=== PATIENT | female | born 1995 | race Hispanic/Latino ===

== ENCOUNTER 2020-12-03 12:59 | Inpatient (IN) | payer OTHER ==
[2020-12-03] MEDS ORDERED: OXYTOCIN DRIP 30,000 MILLIUNITS/500 ML BAG IV ONE (13:01)
[2020-12-03] MEDS ORDERED: LACTATED RINGERS 1,000 ML ONE ×2 (13:08→13:57)
[2020-12-03] MEDS ORDERED: MAGNESIUM SULFATE 4 GM/100 ML BAG IV ONE ×3 (13:09→14:04)
[2020-12-03] MEDS ORDERED: MAGNESIUM SULFATE 40GM/1000ML 40 GM/1,000 ML BAG IV ONE (13:09)
[2020-12-03] MEDS: hydrALAZINE 20 MG/1 ML INJ ONE (13:35)
--- NOTE | 2020-12-03 13:48 | Procedure Note ---
OB Delivery Note - Delivery Date of Delivery: 12/03/20 Surgeon: PONCHO OSBORNE Estimated blood loss: 500cc - Vaginal Delivery presentation: vertex Delivery position: OA Intrapartum events: no care, bleeding site-undetermine Delivery induction: none Delivery monitor: external FHT, external uterine Route of delivery: Delivery placenta: spontaneous Delivery cord: 3 umbilical vessels Episiotomy: none Delivery laceration: none Delivery comments: Pt presented to L&D completely dilated and bleeding profusely with clots. Pt has minimal to no care. She has not seen a doctor since 20 weeks. Infant born precipitously with no heart beat and no respiratory effort initially. Code [facility] called and NICU present immediately. Placenta delivered spontaneously and intact. No lacerations. - A at 1 minute: 0 at 5 minutes: 2 (5 at 10 minute/ 7 at 15 minutes) Infant Gender: Male
--- NOTE | 2020-12-03 13:56 | History and Physical Report ---
History of Present Illness Date of examination: 12/03/20 Date of admission: 12/03/20 12:59 Chief complaint: I'm in labor History of present illness: Patient is a 25-year-old 5 para 2-0-2-2 who presents at approximately 35.3 weeks gestation with reported EDC of January 04, 2021. The patient has had essentially no care with her last office visit being 20 weeks. She has been seen in the ED at various times but has not seen a doctor consistently. She has a history of preeclampsia with her previous pregnancies, however she was not being treated for this condition. She presented to labor and delivery today with complaint of abdominal pain and profuse vaginal bleeding with clots. Past History Past Medical History: hypertension Past Surgical History: no surgical history Family/Genetic History: none Social history: single - Obstetrical History Expected Date of Delivery: 01/04/21 Actual Gestation: 35 Week(s) 3 Day(s) : 5 Para: 2 Spontaneous Abortions: 2 Number of Living Children: 2 Review of Systems All systems: negative Gastrointestinal: abdominal pain Genitourinary: vaginal bleeding, contractions - Vital Signs Vital signs: Vital Signs Pulse BP Pulse Ox 27 L 206/132 92 12/03/20 13:05 12/03/20 13:05 12/03/20 13:05 Temp Pulse Resp BP Pulse Ox 117 H 155/107 99 12/03/20 13:49 12/03/20 13:44 12/03/20 13:49 - Physical Exam Breasts: Cardiovascular: Regular rate, Normal S1, Normal S2 Lungs: Positive: Clear to auscultation, Normal air movement Abdomen: Positive: normal appearance, soft, normal bowel sounds. Negative: distention, tenderness Genitourinary (Female): Positive: normal external genitalia, normal perenium Vulva: both: normal Vagina: Positive: normal moisture. Negative: discharge Cervix: Negative: lesion, discharge Uterus: Positive: normal size, normal contour Adnexa: both: normal Anus/Rectum: Positive: normal perianal skin, heme negative. Negative: rectal mass, hemorrhoids Extremities: Deep Tendon Reflex Grade: Normal +2 - Obstetrical Cervical Dilatation: 10 Cervical Effacement Percentage: 100 Results All other labs normal. Assessment and Plan IUP at 35 and 3 weeks with no care in active labor and suspected abruption of placenta. Infant delivered precipitously and was taken to the NICU. Patient had postdelivery blood pressures in the 170s over 120s. We will begin magnesium therapy as well as hydralazine to lower blood pressure urgently. We will continue with PIH work-up.
[2020-12-03] MEDS ORDERED: LACTATED RINGERS 1,000 ML IV ONE (14:00)
[2020-12-03] MEDS ORDERED: WITCH HAZEL/ GLYCERIN PAD TP PRN (14:01)
[2020-12-03] MEDS ORDERED: PROMETHAZINE 25 MG RECT SUPP PR PRN (14:01)
[2020-12-03] MEDS ORDERED: LANOLIN/ZINC/DIMETHICONE (LANSINOH) 7 GM TP PRN (14:01)
[2020-12-03] MEDS ORDERED: diphenhydrAMINE 25 MG CAP PO PRN (14:01)
[2020-12-03] MEDS ORDERED: ONDANSETRON 4 MG/2 ML INJ IV PRN (14:01)
[2020-12-03] MEDS ORDERED: HYDROcodone/ACETAMINOPHEN 5-325 MG TAB PO PRN (14:01)
[2020-12-03] MEDS ORDERED: MAGNESIUM HYDROXIDE (MOM) ORAL LIQD UDC PO PRN (14:01)
[2020-12-03] MEDS ORDERED: PROMETHAZINE 25 MG TAB PO PRN (14:01)
[2020-12-03] MEDS ORDERED: hydrALAZINE 20 MG/1 ML INJ IV PRN (15:00)
[2020-12-03] MEDS ORDERED: MAGNESIUM SULFATE 40GM/1000ML 40 GM/1,000 ML BAG IV SCH (15:00)
[2020-12-03] MEDS ORDERED: OXYTOCIN DRIP 30 UNITS/500 ML BAG IV SCH (15:00)
[2020-12-03] MEDS: NIFEdipine XL 60 MG TAB PO SCH (16:42)
[2020-12-03] MEDS: IBUPROFEN 600 MG TAB PO SCH (17:20)
[2020-12-03 17:23] LABS: Mean Corpuscular HGB Conc 28 % (30-34); Platelet Count 161 K/mm3 (140-440); Red Blood Count 4.46 M/mm3 (3.65-5.03); Red Cell Distribution Width 18.3 % (13.2-15.2)
[2020-12-03 17:24] LABS: Hematocrit 30.5 % (30.3-42.9); Hemoglobin 8.7 gm/dl (10.1-14.3); Mean Corpuscular Volume 69 fl (79-97)
[2020-12-03 17:42] LABS: Bacteria,Urine 1+ /HPF (Negative); Bilirubin,Urine NEG (Negative); Blood,Urine NEG (Negative); Color,Urine Yellow (Yellow); Mucus,Urine FEW /HPF; Urobilinogen,Urine < 2.0 mg/dL (<2.0)
[2020-12-03 17:46] LABS: Amphetamine Screen,Urine PRESUMPTIVE POSITIVE; Benzodiazepines Screen,Urine PRESUMPTIVE NEGATIVE; Cannabinoid Screen,Urine PRESUMPTIVE NEGATIVE; Cocaine Screen,Urine PRESUMPTIVE NEGATIVE; Methadone Screen,Urine PRESUMPTIVE NEGATIVE; Opiate Screen,Urine PRESUMPTIVE POSITIVE
[2020-12-03 17:47] LABS: Alanine Aminotransferase 35 units/L (7-56)
[2020-12-03 17:59] LABS: Hepatitis C Virus Antibody Non-Reactive (NonReactive)
[2020-12-03 18:25] LABS: Uric Acid 6.5 mg/dL (3.5-7.6)
[2020-12-03 22:30] LABS: Basophils % (Auto) 0.2 % (0.0-1.8); Eosinophils % (Auto) 0.2 % (0.0-4.3); Hematocrit 22.7 % (30.3-42.9); Hemoglobin 6.8 gm/dl (10.1-14.3); Lymphocytes # (Auto) 1.8 K/mm3 (1.2-5.4); Lymphocytes % (Auto) 9.1 % (13.4-35.0); Mean Corpuscular HGB Conc 30 % (30-34); Monocytes # (Auto) 0.8 K/mm3 (0.0-0.8); Monocytes % (Auto) 4.2 % (0.0-7.3); Platelet Count 114 K/mm3 (140-440); Red Blood Count 3.49 M/mm3 (3.65-5.03); Red Cell Distribution Width 18.2 % (13.2-15.2)
[2020-12-03 22:31] LABS: Mean Corpuscular Volume 65 fl (79-97)
[2020-12-03] MEDS: DOCUSATE SODIUM 100 MG CAP PO SCH (22:36)
[2020-12-04] MEDS ORDERED: LACTATED RINGERS 1,000 ML IV SCH (03:00)
[2020-12-04 06:08] LABS: Hemoglobin 7.3 gm/dl (10.1-14.3)
[2020-12-04] MEDS ORDERED: PRENATAL VIT27-FE FUMARATE-FOLIC ACID VIT TAB PO SCH (10:00)
[2020-12-04] MEDS: IBUPROFEN 600 MG TAB PO SCH ×2 (14:45→20:16)
[2020-12-04] MEDS: NIFEdipine XL 60 MG TAB PO SCH (14:46)
--- NOTE | 2020-12-04 22:06 | Progress Note ---
Assessment and Plan PPD 1 s/p precipitous delivery highly suspicious or abruption with no care and peripartum hypertension. NOw stable and doing well. Pt has been off mag now for 4 hours. If blood pressure continues to be stable, will proceed with discharge in the am. Subjective - Subjective Date of service: 12/04/20 Interval history: Patient is a 25-year-old 5 para 2-0-2-2 who presents at approximately 35.3 weeks gestation with reported EDC of January 04, 2021, now post- day one. Infant was transferred to [place] last evening. Pt has been on magnesium now for 8 hours. Her blood pressure is under good control on Procardia. Of note patient had positive tox screen for amphetamines and opiates. Patient reports: appetite normal, voiding normally, pain well controlled, ambulating normally [facility]: transported Objective - Vital Signs Latest vital signs: Vital Signs Temp Pulse Resp BP BP Pulse Ox 12/04/20 20:45 98.1 F 96 H 18 122/80 97 12/04/20 15:45 98.6 F 98 H 18 136/89 99 12/04/20 14:04 110 H 122/75 12/04/20 13:38 99 H 137/89 12/04/20 13:34 103 H 138/91 12/04/20 13:04 101 H 132/90 12/04/20 12:34 110 H 132/77 12/04/20 12:04 103 H 115/68 12/04/20 11:34 103 H 117/72 12/04/20 11:04 100 H 124/82 12/04/20 10:34 101 H 122/74 12/04/20 10:04 106 H 120/81 12/04/20 09:34 106 H 122/78 12/04/20 09:04 102 H 117/68 12/04/20 08:58 105 H 100 12/04/20 08:53 104 H 98 12/04/20 08:48 108 H 99 12/04/20 08:43 107 H 98 12/04/20 08:38 109 H 98 12/04/20 08:34 108 H 116/65 12/04/20 08:33 109 H 99 12/04/20 08:30 98.3 F 109 H 16 108/56 98 12/04/20 08:04 109 H 108/56 12/04/20 07:34 114 H 95/50 12/04/20 07:04 114 H 97/52 12/04/20 06:34 111 H 90/48 12/04/20 06:04 110 H 104/56 12/04/20 05:34 103 H 104/57 12/04/20 05:04 114 H 105/56 12/04/20 04:34 112 H 107/58 12/04/20 04:04 112 H 107/60 12/04/20 03:34 108 H 108/63 12/04/20 03:04 104 H 101/59 12/04/20 02:34 112 H 109/57 12/04/20 02:04 109 H 111/61 12/04/20 01:34 110 H 117/67 12/04/20 01:04 106 H 119/73 12/04/20 00:34 108 H 125/79 12/04/20 00:04 95 H 123/74 12/03/20 23:34 100 H 122/77 12/03/20 23:04 99 H 131/78 12/03/20 22:34 97 H 131/80 12/03/20 22:04 96 H 127/79 Intake and Output 12/04/20 12/04/20 12/04/20 06:59 14:59 22:59 Intake Total 200 Output Total 0 1999 Balance -1649 -1999 200 Intake: Oral 200 Output: Urine 1649 1999 Indwelling Catheter 1649 1999 Other: Total, Intake Amount 200 Total, Output Amount 600 400 # Voids Void 1 # Bowel Movements 1 - Exam Breasts: Present: deferred Cardiovascular: Present: Regular rate, Normal S1, Normal S2 Lungs: Present: Clear to auscultation, Normal air movement Abdomen: Present: normal appearance, soft, normal bowel sounds Uterus: Present: normal, firm, fundal height below umbilicus Extremities: Present: normal - Labs Labs: Abnormal lab results 12/03/20 12/04/20 Range/Units 21:34 05:55 WBC 19.8 H (4.5-11.0) K/mm3 RBC 3.49 L (3.65-5.03) M/mm3 Hgb 6.8 L 7.3 L (10.1-14.3) gm/dl Hct 22.7 L D 24.0 L (30.3-42.9) % MCV 65 L (79-97) fl MCH 19 L (28-32) pg RDW 18.2 H (13.2-15.2) % Plt Count 114 L (140-440) K/mm3 Lymph % (Auto) 9.1 L (13.4-35.0) % Seg Neutrophils % 86.3 H (40.0-70.0) % Seg Neutrophils # 17.1 H (1.8-7.7) K/mm3 - Allied health notes Allied health notes reviewed: social work
--- NOTE | 2020-12-04 22:12 | Discharge Summary ---
Providers - Providers Date of Admission: 12/03/20 12:59 Date of discharge: 12/05/20 Attending physician: PONCHO OSBORNE 12/04/20 15:59 Consult to Case Management [CONS] Routine Services Needed at Discharge: Rn Anesthetist Notified:: [id number] Comment:: Positive for opiates and amphetamines, no PNC Primary care physician: [employer] Hospitalization Reason for admission: active labor, vaginal bleeding, labor, other Delivery: Procedure details: see delivery summary Laceration: none Other procedures: none complications: other (hypertension) Discharge diagnosis: delivery [place] baby: male Hospital course: Pt did well on magnesium. Her blood pressure has been well controlled on procardia. Condition at discharge: Good Disposition: DC-01 TO HOME OR SELFCARE - Discharge Diagnoses (1) No care in current Status: Chronic Qualifiers: Trimester: third trimester Qualified Code(s): O09.33 - Supervision of with insufficient care, third trimester (2) delivery Status: Acute (3) Placental abruption affecting delivery Status: Acute Plan - Discharge Medications Prescriptions: Ferrous Sulfate [Feosol 325 MG tab] 325 mg PO BID #60 tablet Ibuprofen [Motrin] 800 mg PO Q8HR PRN #40 tablet PRN Reason: Pain, Mild (1-3) HYDROcodone/APAP 5-325 [Spring 5/325] 1 each PO Q6HR PRN #15 tablet PRN Reason: Pain NIFEdipine XL [Procardia Xl] 60 mg PO QDAY #30 tablet - Provider Discharge Summary Activity: routine, no sex for 6 weeks, no heavy lifting 4 weeks, no strenuous exercise Diet: routine Instructions: routine Additional instructions: [] Smoking cessation referral if applicable(refer to patient education folder for contact #) [] Refer to [facility] Booklet Call your doctor immediately for: * Fever > 100.5 * Heavy vaginal bleeding ( >1 pad per hour) * Severe persistent headache * Shortness of breath * Reddened, hot, painful area to leg or breast * Drainage or odor from incision. * Keep incision clean and dry at all times and follow doctor's instructions regarding bathing/showering - Follow up plan Follow up: PRIMARY CARE, [Primary Care Provider] - 7 Days PONCHO OSBORNE MD [Staff Physician] - 6 Weeks
[2020-12-05] MEDS: DOCUSATE SODIUM 100 MG CAP PO SCH ×2 (02:12→11:07)
[2020-12-05] MEDS: IBUPROFEN 600 MG TAB PO SCH (02:12)
[2020-12-05 09:48] VITALS: BP 145/96
[2020-12-05] MEDS: NIFEdipine XL 60 MG TAB PO SCH (11:07)
== END 2020-12-05 11:12 | disposition home or self-care (01) | DRG 774 ==
LOC: LD 12:59 → OB 12-04 15:47
PROVIDERS: ADMIT Obstetrics & Gynecology; ATTEND Obstetrics & Gynecology
PROC: 10E0XZZ Delivery of Products of Conception, External Approach (ICD-10-PCS; principal; 2020-12-03)
DX: O60.14X0 Preterm labor third trimester with preterm delivery third trimester, not applicable or unspecified (principal); O45.93 Premature separation of placenta, unspecified, third trimester; O62.3 Precipitate labor; Z3A.35 35 weeks gestation of pregnancy; Z37.0 Single live birth; O10.92 Unspecified pre-existing hypertension complicating childbirth; Z20.822 Contact with and (suspected) exposure to COVID-19
CPT/HCPCS: 36415; 80307; 81001; 82565; 84450; 84460; 84550; 85014; 85018; 85025; 85027; 86592; 86706; 86762; 86803; 86850; 86900; 86901; 87806; G0378; J0360; J2590; J3475; J7120; U0003

== ENCOUNTER 2021-06-01 04:32 | Emergency (ER) | payer SELFPAY ==
[2021-06-01 05:21] LABS: Basophils # (Auto) 0.1 K/mm3 (0.0-0.1); Basophils % (Auto) 0.7 % (0.0-1.8); Eosinophils # (Auto) 0.3 K/mm3 (0.0-0.4); Eosinophils % (Auto) 2.6 % (0.0-4.3); Lymphocytes # (Auto) 2.9 K/mm3 (1.2-5.4); Mean Corpuscular HGB Conc 30 % (30-34); Monocytes # (Auto) 1.3 K/mm3 (0.0-0.8); Monocytes % (Auto) 11.8 % (0.0-7.3); Platelet Count 386 K/mm3 (140-440); Red Cell Distribution Width 19.8 % (13.2-15.2)
[2021-06-01 05:34] LABS: BUN/Creatinine Ratio 18; Blood Urea Nitrogen 20 mg/dL (7-17); Calcium 8.6 mg/dL (8.4-10.2); Hemolysis Index 1
[2021-06-01 05:42] LABS: Hematocrit 29.2 % (30.3-42.9); Hemoglobin 8.6 gm/dl (10.1-14.3); Mean Corpuscular Volume 65 fl (79-97)
== END 2021-06-01 05:00 ==
LOC: ED 04:32
DX: Z00.8 Encounter for other general examination (principal); Z53.21 Procedure and treatment not carried out due to patient leaving prior to being seen by health care provider
CPT/HCPCS: 36415; 80048; 80320; 84703; 85025; G0480